=== PATIENT | male | born 1945 | race Caucasian/White ===

== ENCOUNTER 2017-02-26 23:10 | Emergency (ER) | payer MEDICARE, OTHER ==
[2017-02-26] MEDS: ONDANSETRON 4 MG INJ IV (23:57)
[2017-02-26] MEDS: METHYLPREDNISOLONE 125 MG INJ IV (23:57)
[2017-02-26] MEDS: morphine 10 MG INJ IV (23:58)
[2017-02-26] MEDS: SOD CHLORIDE 0.9% 500 ML IV (23:59)
[2017-02-27] MEDS ORDERED: HYDROCODONE/APAP (5/325) TAB PO
[2017-02-27] MEDS: morphine 4 MG/ML VIAL IV (00:55)
[2017-02-27] MEDS: KETOROLAC 30 MG INJ IV (02:33)
[2017-02-27] MEDS: CEFAZOLIN 1 GM/50 ML (PMX) 50 ML IVPB (02:34)
[2017-02-27] MEDS: CIPROFLOXACIN 0.3% 3.5 GM OPH OINT BOTH EYES (03:32)
== END 2017-02-27 06:10 | disposition home or self-care (01) ==
LOC: FTE 23:10
DX: T65.91XA Toxic effect of unspecified substance, accidental (unintentional), initial encounter (principal); H10.213 Acute toxic conjunctivitis, bilateral
CPT/HCPCS: 96374; 96375; 96376; 99284-25